=== PATIENT | male | born 1950 | race Caucasian/White ===

== ENCOUNTER 2021-10-29 09:07 | Inpatient (IN) ==
[2021-10-29 09:27] LABS: Basophils # 0.1 10*3/uL (0.0-0.2); Basophils % 0.9 % (0.0-0.8); Eosinophils # 0.2 10*3/uL (0.0-0.87); Eosinophils % 3.1 % (0.00-10.9); Hematocrit 44.5 VOL% (42.0-52.0); Hemoglobin 15.2 GM/DL (14.0-18.0); Immature Granulocytes % 0.5 %; Immature Granulocytes Absolute 0.03 #; Lymphocytes # 1.4 10*3/uL (1.4-4.0); Lymphocytes % 23.7 % (21.2-54.2); Mean Corpuscular HGB Conc 34.2 GM/DL (32-36); Mean Corpuscular Volume 94.3 FL (87-102); Mean Platelet Volume 11.3 FL (9.6-12.0); Monocytes # 0.4 10*3/uL (0.11-0.8); Monocytes % 7.5 % (1.7-12.7); Neutrophils % 64.3 % (38.7-73.9); Platelet Count 168 T/CUMM (130-400); Red Blood Count 4.72 MC/CUMM (3.8-5.5); Red Cell Distribution Width 12.9 % (9.3-17.3); White Blood Count 5.8 T/CUMM (4-12)
[2021-10-29] MEDS ORDERED: ASPIRIN 325 MG TABLET PO STA (09:38)
[2021-10-29 09:52] LABS: Albumin 3.7 G/DL (3.4-5.0); Bilirubin,Total 0.7 MG/DL (0.20-1.00); Calcium 9.6 MG/DL (8.5-10.1); Osmolality,Calculated 283.1 MOS/KG (273-304); Potassium 4.2 MMOL/L (3.5-5.1); Total Protein 6.9 G/DL (6.4-8.2)
[2021-10-29] MEDS ORDERED: BISACODYL 5 MG TABLET PO PRN (11:01)
[2021-10-29] MEDS ORDERED: DOCUSATE SODIUM 100 MG CAPSULE PO PRN (11:01)
[2021-10-29] MEDS ORDERED: ONDANSETRON 4 MG/2 ML VIAL IV PRN (11:01)
[2021-10-29] MEDS ORDERED: ACETAMINOPHEN 325 MG TABLET PO PRN (11:01)
[2021-10-29] MEDS ORDERED: ALUMINUM/MAGNES/SIMETH MAX STR 30 ML UDCUP PO PRN (11:01)
[2021-10-29] MEDS ORDERED: GLUCAGON 1 MG VIAL IM PRN (11:01)
[2021-10-29] MEDS ORDERED: hydrALAZINE 20 MG/1 ML VIAL IV PRN (11:01)
[2021-10-29] MEDS ORDERED: DEXTROSE 10% 250 ML BAG IV PRN (11:07)
[2021-10-29] MEDS: PANTOPRAZOLE 40 MG TABLET PO SCH ×2 (11:58→20:42)
[2021-10-29] MEDS: ENOXAPARIN 40 MG/0.4 ML SYRINGE SUBCUT SCH (12:50)
[2021-10-29] MEDS: amLODIPine 5 MG TABLET PO SCH (19:00)
[2021-10-30 05:09] LABS: Basophils # 0.1 10*3/uL (0.0-0.2); Basophils % 0.7 % (0.0-0.8); Eosinophils # 0.2 10*3/uL (0.0-0.87); Eosinophils % 2.9 % (0.00-10.9); Hemoglobin 13.9 GM/DL (14.0-18.0); Immature Granulocytes % 0.3 %; Immature Granulocytes Absolute 0.02 #; Lymphocytes # 1.7 10*3/uL (1.4-4.0); Lymphocytes % 23.8 % (21.2-54.2); Mean Corpuscular HGB Conc 33.9 GM/DL (32-36); Mean Corpuscular Volume 94.3 FL (87-102); Mean Platelet Volume 12.1 FL (9.6-12.0); Monocytes # 0.7 10*3/uL (0.11-0.8); Monocytes % 9.6 % (1.7-12.7); Neutrophils % 62.7 % (38.7-73.9); Platelet Count 141 T/CUMM (130-400); Red Blood Count 4.35 MC/CUMM (3.8-5.5); Red Cell Distribution Width 12.6 % (9.3-17.3); White Blood Count 7.2 T/CUMM (4-12)
[2021-10-30 05:35] LABS: Albumin 3.2 G/DL (3.4-5.0); Bilirubin,Total 0.4 MG/DL (0.20-1.00); Calcium 9.2 MG/DL (8.5-10.1); Osmolality,Calculated 281.3 MOS/KG (273-304); Potassium 3.7 MMOL/L (3.5-5.1); Risk Ratio 5.06; Thyroid Stimulating Hormone 2.46 uIU/ml (0.358-3.74); Total Protein 6.5 G/DL (6.4-8.2); VLDL Cholesterol 50.2 MG/DL
[2021-10-30] MEDS ORDERED: diphenhydrAMINE CAP 25 MG CAPSULE PO ONE (09:21)
[2021-10-30] MEDS ORDERED: DIAZEPAM 5 MG TABLET PO ONE (09:21)
[2021-10-30] MEDS ORDERED: SODIUM CHLORIDE 0.45% 1,000 ML IV SCH (09:30)
[2021-10-30] MEDS: ATORVASTATIN 10 MG TABLET PO SCH (11:15)
[2021-10-30] MEDS: ASPIRIN EC 81 MG TABLET PO SCH (11:15)
[2021-10-30] MEDS ORDERED: HEPARIN/NACL 0.9% 2 UNITS/ML 2,000 UNIT/1,000 ML BAG IV ONE (11:17)
[2021-10-30] MEDS ORDERED: fentaNYL 100 MCG/2 ML VIAL ONE (11:32)
[2021-10-30] MEDS ORDERED: MIDAZOLAM 2 MG/2 ML VIAL ONE ×2 (11:32→11:48)
[2021-10-30] MEDS ORDERED: MORPHINE 2 MG/1 ML SYRINGE IV PRN (12:20)
[2021-10-30] MEDS ORDERED: ACETAMINOPHEN/CODEINE 300-30 MG TABLET PO PRN (12:20)
[2021-10-30] MEDS: ENOXAPARIN 40 MG/0.4 ML SYRINGE SUBCUT SCH (12:27)
[2021-10-30] MEDS: amLODIPine 5 MG TABLET PO SCH (12:28)
[2021-10-30] MEDS: OMEGA 3 ACID ETHYL ESTERS 1 GM CAPSULE PO SCH (12:29)
[2021-10-30] MEDS: PANTOPRAZOLE 40 MG TABLET PO SCH ×2 (12:29→20:19)
[2021-10-31 06:01] LABS: Basophils % 0.6 % (0.0-0.8); Eosinophils # 0.2 10*3/uL (0.0-0.87); Eosinophils % 2.6 % (0.00-10.9); Hematocrit 41.2 VOL% (42.0-52.0); Hemoglobin 13.9 GM/DL (14.0-18.0); Immature Granulocytes % 0.3 %; Immature Granulocytes Absolute 0.02 #; Lymphocytes # 1.6 10*3/uL (1.4-4.0); Lymphocytes % 21.6 % (21.2-54.2); Mean Corpuscular HGB Conc 33.7 GM/DL (32-36); Mean Corpuscular Volume 94.3 FL (87-102); Monocytes # 0.6 10*3/uL (0.11-0.8); Monocytes % 8.9 % (1.7-12.7); Platelet Count 162 T/CUMM (130-400); Red Blood Count 4.37 MC/CUMM (3.8-5.5); Red Cell Distribution Width 12.8 % (9.3-17.3); White Blood Count 7.2 T/CUMM (4-12)
[2021-10-31 06:15] LABS: Calcium 9.1 MG/DL (8.5-10.1); Osmolality,Calculated 280.4 MOS/KG (273-304); Potassium 3.4 MMOL/L (3.5-5.1)
[2021-10-31] MEDS ORDERED: ATORVASTATIN 10 MG TABLET PO SCH (09:00)
[2021-10-31 10:09] VITALS: BP 133/59
[2021-10-31] MEDS: PANTOPRAZOLE 40 MG TABLET PO SCH (10:12)
[2021-10-31] MEDS: OMEGA 3 ACID ETHYL ESTERS 1 GM CAPSULE PO SCH (10:12)
[2021-10-31] MEDS: ASPIRIN EC 81 MG TABLET PO SCH (10:12)
[2021-10-31] MEDS: ATORVASTATIN 10 MG TABLET PO SCH (10:12)
[2021-10-31] MEDS: amLODIPine 5 MG TABLET PO SCH (10:12)
[2021-11-04] MEDS ORDERED: ERGOCALCIFEROL 50,000 UNIT CAPSULE PO SCH (09:00)
== END 2021-10-31 11:49 | disposition home or self-care (01) | DRG 287 ==
LOC: N.ED 09:07 → N.EDINP 09:07 → N.TELEN 19:49 → SUATTDRO 10-30 08:46
PROVIDERS: ADMIT Internal Medicine; ATTEND Internal Medicine
PROC: CLCCHCL (ICD-10-PCS; 2021-10-30 11:45)

== ENCOUNTER 2022-01-10 15:18 | Observation (INO) ==
[2022-01-10 16:04] LABS: Basophils # 0.1 10*3/uL (0.0-0.2); Basophils % 0.8 % (0.0-0.8); Eosinophils # 0.2 10*3/uL (0.0-0.87); Eosinophils % 2.9 % (0.00-10.9); Hematocrit 46.5 VOL% (42.0-52.0); Immature Granulocytes % 0.5 %; Immature Granulocytes Absolute 0.03 #; Lymphocytes # 1.1 10*3/uL (1.4-4.0); Lymphocytes % 18.8 % (21.2-54.2); Mean Corpuscular HGB Conc 34.4 GM/DL (32-36); Mean Corpuscular Volume 92.3 FL (87-102); Mean Platelet Volume 11.3 FL (9.6-12.0); Monocytes # 0.5 10*3/uL (0.11-0.8); Monocytes % 7.8 % (1.7-12.7); Neutrophils % 69.2 % (38.7-73.9); Platelet Count 193 T/CUMM (130-400); Red Blood Count 5.04 MC/CUMM (3.8-5.5); Red Cell Distribution Width 12.9 % (9.3-17.3); White Blood Count 5.9 T/CUMM (4-12)
[2022-01-10 16:21] LABS: RBC,Urine <1 /HPF (0-4)
[2022-01-10 16:24] LABS: Bilirubin,Urine Negative (Negative); Blood, Urine Negative (Negative); Glucose,Urine (UA) Negative (Negative); Ketones,Urine Negative (Negative); Nitrite,Urine Negative (Negative); Protein,Urine Negative (Negative); Urine Appearance Clear (Clear); Urine Color Straw (Yellow); Urine Specific Gravity < 1.005 (1.001-1.035); Urine Urobilinogen 0.2 eU/dL (<2.0); Urine pH 6.5 (4.5-8.0)
[2022-01-10] MEDS ORDERED: guaiFENesin/DM ER 600-30 MG TABLET PO PRN (16:25)
[2022-01-10] MEDS ORDERED: MAGNESIUM SULF RIDER 2 GM/50 ML PREMIX IV PRN (16:25)
[2022-01-10] MEDS ORDERED: ALUMINUM/MAGNES/SIMETH MAX STR 30 ML UDCUP PO PRN (16:25)
[2022-01-10] MEDS ORDERED: ONDANSETRON 4 MG/2 ML VIAL IV PRN (16:25)
[2022-01-10] MEDS ORDERED: MAGNESIUM SULF RIDER 4 GM/100 ML PREMIX IV PRN (16:25)
[2022-01-10] MEDS ORDERED: PROMETHAZINE 25 MG TABLET PO PRN (16:25)
[2022-01-10] MEDS ORDERED: DOCUSATE SODIUM 100 MG CAPSULE PO PRN (16:25)
[2022-01-10] MEDS ORDERED: ZALEPLON 5 MG CAPSULE PO PRN (16:25)
[2022-01-10] MEDS ORDERED: diphenhydrAMINE CAP 25 MG CAPSULE PO PRN (16:25)
[2022-01-10] MEDS ORDERED: hydrALAZINE 20 MG/1 ML VIAL IV PRN (16:25)
[2022-01-10] MEDS ORDERED: ACETAMINOPHEN 325 MG TABLET PO PRN (16:25)
[2022-01-10 16:37] LABS: Bilirubin,Total 0.5 MG/DL (0.20-1.00); Calcium 9.5 MG/DL (8.5-10.1); Osmolality,Calculated 285.8 MOS/KG (273-304); Potassium 3.9 MMOL/L (3.5-5.1); Thyroid Stimulating Hormone 1.87 uIU/ml (0.358-3.74); Total Protein 7.9 G/DL (6.4-8.2)
[2022-01-10 16:56] LABS: Barbiturates Screen,Urine Negative (Negative); Benzodiazepines Screen,Urine Negative (Negative); Cannabinoid Screen,Urine Negative (Negative); Opiate Screen,Urine Negative (Negative); Phencyclidine Screen,Urine Negative (Negative)
[2022-01-10] MEDS ORDERED: ASPIRIN EC 81 MG TABLET PO SCH (21:00)
[2022-01-10] MEDS ORDERED: OMEGA 3 ACID ETHYL ESTERS 1 GM CAPSULE PO SCH (21:00)
[2022-01-10] MEDS ORDERED: METOPROLOL TARTRATE 25 MG TABLET PO SCH (21:00)
[2022-01-10] MEDS ORDERED: APIXABAN 5 MG TABLET PO SCH (21:00)
[2022-01-10] MEDS: METOPROLOL TARTRATE 25 MG TABLET PO SCH (21:49)
[2022-01-11 05:13] LABS: Basophils # 0.1 10*3/uL (0.0-0.2); Basophils % 0.8 % (0.0-0.8); Eosinophils # 0.3 10*3/uL (0.0-0.87); Hematocrit 41.5 VOL% (42.0-52.0); Hemoglobin 14.1 GM/DL (14.0-18.0); Immature Granulocytes % 0.3 %; Immature Granulocytes Absolute 0.02 #; Lymphocytes # 1.8 10*3/uL (1.4-4.0); Lymphocytes % 28.1 % (21.2-54.2); Mean Corpuscular Volume 93.3 FL (87-102); Mean Platelet Volume 11.8 FL (9.6-12.0); Monocytes # 0.7 10*3/uL (0.11-0.8); Monocytes % 10.5 % (1.7-12.7); Neutrophils % 56.3 % (38.7-73.9); Platelet Count 192 T/CUMM (130-400); Red Blood Count 4.45 MC/CUMM (3.8-5.5); White Blood Count 6.5 T/CUMM (4-12)
[2022-01-11 05:31] LABS: Osmolality,Calculated 283.1 MOS/KG (273-304); Potassium 3.6 MMOL/L (3.5-5.1)
[2022-01-11 08:44] VITALS: BP 118/79
[2022-01-11] MEDS: METOPROLOL TARTRATE 25 MG TABLET PO SCH (08:44)
[2022-01-11] MEDS ORDERED: PANTOPRAZOLE 40 MG TABLET PO SCH (09:00)
[2022-01-11] MEDS ORDERED: amLODIPine 5 MG TABLET PO SCH (09:00)
[2022-01-11] MEDS ORDERED: ATORVASTATIN 10 MG TABLET PO SCH (09:00)
[2022-01-13] MEDS ORDERED: ERGOCALCIFEROL 50,000 UNIT CAPSULE PO SCH (09:00)
== END 2022-01-11 11:15 | disposition home or self-care (01) ==
LOC: N.EDINP 15:18 → N.ED 15:18 → N.TELEN 18:34
PROVIDERS: ADMIT Internal Medicine Cardiovascular Disease; ATTEND Internal Medicine Cardiovascular Disease